=== PATIENT | male | born 1990 | race Caucasian/White ===

== ENCOUNTER 2016-07-10 14:35 | Emergency (ER) | payer OTHER ==
[~2016-07-10] VITALS: Ht 177.8 cm; Wt 75.0 kg
[~2016-07-10 14:35] MED LIST: CEPHALEXIN500 MG PO; CIPRO500 MG OR; DENIES CURRENT MEDS; KEFLEX500 MG OR; LORTAB 5 OR; LORTAB 7.5-3251 TAB PO; MEDDOSEPAK OR; MEDDOSEPAK PO; MOTRIN800 MG PO; PERCOCET 5/325M1 TAB OR; ROBITUSSIN AC10 ML PO; ROBITUSSIN200 MG/10 PO; VENTOLIN HFA IN; ZPAK PO
[2016-07-10 15:44] VITALS: BP 132/88
[2016-07-10] MEDS ORDERED: AMOXICILLIN500 MG PO (15:44)
== END 2016-07-10 15:47 | disposition home or self-care (01) | DRG 134 ==
LOC: ED 14:35
PROC: 09QKXZZ Repair Nasal Mucosa and Soft Tissue, External Approach (ICD-10-PCS; principal; 2016-07-10)
DX: S01.23XA Puncture wound without foreign body of nose, initial encounter (principal); W27.0XXA Contact with workbench tool, initial encounter; Y93.89 Activity, other specified; Y92.89 Other specified places as the place of occurrence of the external cause

== ENCOUNTER 2018-04-23 21:07 | Emergency (ER) | payer OTHER ==
[~2018-04-23] VITALS: Ht 177.8 cm; Wt 75.0 kg
[~2018-04-23 21:07] MED LIST changes: +AMOXICILLIN500 MG PO
[2018-04-23] MEDS ORDERED: AMOXICILLIN500 MG PO (22:30)
[2018-04-23 22:48] VITALS: BP 125/80
== END 2018-04-23 22:49 | disposition home or self-care (01) | DRG 914 ==
LOC: ED 21:07
PROC: 0HCGXZZ Extirpation of Matter from Left Hand Skin, External Approach (ICD-10-PCS; principal; 2018-04-23)
DX: S61.243A Puncture wound with foreign body of left middle finger without damage to nail, initial encounter (principal); W26.8XXA Contact with other sharp object(s), not elsewhere classified, initial encounter; W45.8XXA Other foreign body or object entering through skin, initial encounter; Y93.H9 Activity, other involving exterior property and land maintenance, building and construction; Y92.009 Unspecified place in unspecified non-institutional (private) residence as the place of occurrence of the external cause